=== PATIENT | male | born 1955 | race Caucasian/White ===

== ENCOUNTER 2025-04-08 15:17 | Emergency (ER) | payer OTHER ==
[~2025-04-08] VITALS: Ht 177.8 cm; Wt 124.7 kg
[2025-04-08] MEDS ORDERED: OXAYDO5 M1 PO (15:43)
[2025-04-08] MEDS ORDERED: AMOCLA875 PO (15:43)
== END 2025-04-08 16:00 | disposition home or self-care (01) ==
LOC: ER 15:17
DX: K11.20 Sialoadenitis, unspecified (principal); I10 Essential (primary) hypertension
CPT/HCPCS: 99282